=== PATIENT | female | born 2005 | race African-American/Black ===

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

== ENCOUNTER 2023-10-12 15:02 | Outpatient (CLI) | payer MEDICAID | END 2023-10-12 15:03 | disposition home or self-care (01) | LOC: BICRAD 15:02 | PROVIDERS: ATTEND Physician Assistant Medical | DX: R10.13 Epigastric pain (principal); R19.7 Diarrhea, unspecified; R14.0 Abdominal distension (gaseous) | CPT/HCPCS: 74019 ==

== ENCOUNTER 2023-11-04 11:04 | Emergency (ER) | payer MEDICAID ==
[2023-11-04] MEDS ORDERED: Ketorolac Tromethamine 30 MG (1 mL) VIAL ONE (12:15)
[2023-11-04] MEDS ORDERED: Metoclopramide HCl 10 MG (2 mL) VIAL ONE (12:15)
[2023-11-04] MEDS ORDERED: methylPREDNISolone Sod Succ/PF 125 MG/2 ML VIAL ONE (12:15)
== END 2023-11-04 14:06 | disposition home or self-care (01) ==
LOC: ERS 11:04
DX: R51.9 Headache, unspecified (principal); R29.700 NIHSS score 0
CPT/HCPCS: 70450; 96365; 96375; J1885; J2765; J2930